=== PATIENT | female | born 1965 ===

== ENCOUNTER → 2018-11-02 19:11 | Outpatient (ROUT) | payer OTHER, SELFPAY ==
[2018-11-02 20:44] LABS: Rubella Antibody IgG 44.3 IU/mL (>15)
[2018-11-06 15:36] LABS: Rubeola Measles IgG < 25.00 AU/mL (< 25.00)
== END ==
PROVIDERS: Visit Provider Family Medicine
DX: B34.9 Viral infection, unspecified (principal)
CPT/HCPCS: 36415; 86735; 86762; 86765